=== PATIENT | female | born 1975 | race Hispanic/Latino ===

== ENCOUNTER 2017-08-07 14:42 | Outpatient (CLI) | payer OTHER ==
[2017-08-07 16:16] LABS: #Basophils 0.1 thou/uL (0.0-0.2); #Eosinphils 0.1 thou/uL (0.0-0.7); #Lymphocytes 1.7 thou/uL (1.20-3.40); #Monocytes 0.4 thou/uL (0.11-0.59); #Neutrophils 2.6 thou/uL (1.40-6.50); %Basophils 1.1 % (0.0-1.0); %Eosinophils 2.8 % (0.0-10.0); %Lymphocytes 34.7 % (21.0-51.0); %Monocytes 7.8 % (0.0-10.0); %Neutrophils 53.6 % (42.0-75.0); Hemoglobin 14.4 g/dL (12.0-16.0); Mean Corpuscular Hemoglobin 30.8 pg (27.0-31.0); Mean Corpuscular Volume 90.6 fl (81.0-99.0); Mean Platelet Volume 7.1 fL (7.4-10.4); Platelet Count 277 thou/uL (130-400); RBC Distribution Width 11.8 % (11.5-14.5); Red Blood Cell (RBC) Count 4.69 mill/uL (4.20-5.40); White Blood Cell (WBC) Count 4.8 thou/uL (4.8-10.8)
== END 2017-08-07 14:43 | disposition home or self-care (01) ==
LOC: LABBT 14:42
PROVIDERS: ATTEND Orthopaedic Surgery Hand Surgery
DX: Z01.812 Encounter for preprocedural laboratory examination (principal); G56.03 Carpal tunnel syndrome, bilateral upper limbs
CPT/HCPCS: 85025

== ENCOUNTER 2017-08-08 05:46 | Day surgery (SDC) | payer OTHER ==
[2017-08-07 14:58] VITALS: BMI 44.1
[2017-08-08] MEDS ORDERED: Bupivacaine PF 0.5% 30 ML VIAL ONE (06:21)
[2017-08-08] MEDS ORDERED: Bacitracin Zinc Ointment 30 gm TUBE ONE (06:21)
[2017-08-08] MEDS ORDERED: Betamet Acet/Betamet Na Ph 30 MG/5 ML VIAL ONE (06:21)
[2017-08-08] MEDS ORDERED: CEFAZOLIN/Water 2 GM/20 ML SYRINGE ONE (06:25)
[2017-08-08] MEDS ORDERED: Fentanyl 100 MCG/2 ML VIAL ONE (06:57)
[2017-08-08] MEDS ORDERED: Midazolam HCl 2 mg/2 ml Vial ONE (06:57)
[2017-08-08] MEDS ORDERED: Ketorolac Tromethamine 30 MG/ML VIAL ONE ×2 (07:53→14:36)
[2017-08-08] MEDS ORDERED: Dexamethasone 20 MG/5 ML VIAL ONE (14:36)
[2017-08-08] MEDS ORDERED: Ondansetron HCl/PF 4 MG/2 ML Vial ONE (14:36)
[2017-08-08] MEDS ORDERED: diphenhydrAMINE 50 MG/ML VIAL ONE (14:36)
[2017-08-08] MEDS ORDERED: Lidocaine 1% PF 5 ML VIAL ONE (14:36)
[2017-08-08] MEDS ORDERED: PROPOFOL 200 MG/20 ML VIAL ONE (14:36)
--- NOTE | 2017-08-11 13:04 | OP ---
DATE OF PROCEDURE: 08/08/2017 PREOPERATIVE DIAGNOSIS: Left carpal tunnel syndrome. POSTOPERATIVE DIAGNOSIS: Left carpal tunnel syndrome. FINDINGS: Very tight transverse carpal ligament with flattening median nerve without stippling in th e center portion of the carpal canal. PROCEDURE: Left carpal tunnel release. SURGEON: Ranjit Contreras M.D. SPECIMEN REMOVED: None. INJECTIONS: Celestone 3 mL and then a local block augmenting the general anesthesia given by the [facility] with 10 mL of 0.5% Marcaine, 5 given before procedure and 5 afterwards. ESTIMATED BLOOD LOSS: 5 mL. TOURNIQUET TIME: 14 minutes. INDICATIONS: The patient had the numbness and tingling in the radial three digits, positive exam inc luding Tinel's and Durkan, failed conservative treatment and positive EMGs. DESCRIPTION OF PROCEDURE: After successful general endotracheal anesthesia, the limb was prepped and draped. Timeout was done appropriately. We then inflated the tourniquet after exsanguination of th e limb to 250 mmHg pressure. Standard incision was made beginning as far distal as Quiros's cardinal line for proximal as a 5 mm distal volar wrist flexion crease in line with the ring finger. The inc ision was carried through skin, subcutaneous tissue until we ____ the transverse carpal ligament. We then used a [place] blade beginning from the midportion of the ligament distally visualized in the mo tor branch which remained intact and all the branches were spared. Once released transcarpal ligamen t here, we then did it from the midpoint proximally with a combination of [place] blade and tenotomy s cissors. It was here that we saw the very flattened median nerve over approximately 1 cm area. All of the flexor tendons were inspected to include flexor pollicis longus. There was no tenosynovitis, so no tenosynovectomy was indicated. The patient then had the tourniquet deflated. Hemostasis obtained. Three mL of Celestone dripped in to the wound. We closed the incision with interrupted 4-0 nylon mattress pattern. We gave the remai margo part of Marcaine injection and bulky dressing was applied. The patient left the operating room without evidence of anesthetic or operative complication.
== END 2017-08-08 09:20 | disposition home or self-care (01) ==
LOC: SDC 05:46
PROVIDERS: ATTEND Orthopaedic Surgery Hand Surgery
PROC: 01N50ZZ Release Median Nerve, Open Approach (ICD-10-PCS; principal; 2017-08-08)
DX: G56.02 Carpal tunnel syndrome, left upper limb (principal)
CPT/HCPCS: J0702; J1100; J1200; J1885; J2001; J2250; J2405; J2704; J3010; S0020

== ENCOUNTER 2018-01-06 15:57 | Outpatient (CLI) | payer OTHER ==
--- NOTE | 2018-01-06 16:36 | RAD ---
LEFT FOOT TWO VIEWS: History: Pain. M79.89 FINDINGS: No acute fracture or malalignment. Soft tissues are unremarkable. There is a likely an osteochondroma of the distal tibia and distal fibula versus old injury. IMPRESSION: 1. No acute abnormality. Chronic changes. 2. Evaluation of the lisfranc interval is limited due to lack of an oblique image. POS: DEMAR
== END 2018-01-06 15:58 | disposition home or self-care (01) ==
LOC: RAD 15:57
PROVIDERS: ATTEND Family Medicine
DX: M79.89 Other specified soft tissue disorders (principal)